=== PATIENT | male | born 1985 | race Caucasian/White ===

== ENCOUNTER 2019-10-21 03:35 | Emergency (ER) | payer OTHER ==
[2019-10-21 03:45] VITALS: BP 137/90
== END 2019-10-21 05:17 | disposition home or self-care (01) ==
LOC: M ED 03:35
DX: Z63.0 Problems in relationship with spouse or partner (principal); F41.9 Anxiety disorder, unspecified; F32.9 Major depressive disorder, single episode, unspecified; Z91.5 Personal history of self-harm

== ENCOUNTER → 2022-02-06 | Outpatient (CLI) | payer OTHER | LOC: M RAD 14:06 | PROVIDERS: ATTEND Internal Medicine Medical Oncology | DX: R59.0 Localized enlarged lymph nodes (principal) ==

== ENCOUNTER 2022-06-20 19:36 | Emergency (ER) | payer OTHER ==
[~2022-06-20] VITALS: Ht 180.3 cm; Wt 119.3 kg
[2022-06-20] MEDS ORDERED: PROA1AER2 INH (19:45)
[2022-06-20 21:04] LABS: VENOUS BASE EXCESS -0.5 (-2.0-2.0); VENOUS HCO3 24.4 MEQ/L (23.0-27.0); VENOUS O2 SATURATION 94.9 % (60.0-80.0); VENOUS PARTIAL PRESSURE CO2 41.4 mmHg (38.0-50.0); VENOUS PARTIAL PRESSURE O2 72.7 mmHg (30.0-50.0); VENOUS PH 7.389 UNITS (7.330-7.430); VENOUS TOTAL CO2 25.7 MEQ/L (24.0-28.0)
[2022-06-20] MEDS ORDERED: ALBUTEROL SULFATE 2.5MG/0.5ML INH NEB SOLN INH ONE (21:25)
[2022-06-20] MEDS ORDERED: IPRATROPIUM 0.5MG/ALBUTEROL 2.5MG INH SOL UD 3ML (DUONEB) NEB ONE (21:25)
[2022-06-20 21:33] LABS: CK-MB VALUE MASS < 1.0 NG/ML (<3.6)
[2022-06-20 21:34] LABS: ALBUMIN 3.9 G/DL (3.2-5.2); ALKALINE PHOSPHATASE 69 U/L (46-116); ALT/SGPT 132 U/L (7.0-40); AST/SGOT 39 U/L (<34); BILIRUBIN,DIRECT < 0.1 MG/DL (<0.4); BILIRUBIN,TOTAL 0.3 MG/DL (0.3-1.2); BLOOD UREA NITROGEN 14 MG/DL (9-23); CALCIUM LEVEL 8.8 MG/DL (8.5-10.1); CARBON DIOXIDE LEVEL 26 MMOL/L (20-31); CHLORIDE LEVEL 106 MMOL/L (98-107); CREATININE FOR GFR 0.72 MG/DL (0.70-1.30); GLOMERULAR FILTRATION RATE > 60.0 (>60); GLUCOSE, FASTING 115 MG/DL (60-100); POTASSIUM SERUM 4.3 MMOL/L (3.5-5.1); SODIUM LEVEL 138 MMOL/L (136-145); TOTAL PROTEIN 7.3 G/DL (5.7-8.2)
[2022-06-20 21:35] LABS: CPK CREATINE PHOSPHOKINASE 156 U/L (46-171); MB/CK RELATIVE INDEX 0.64 (< OR =4)
[2022-06-20 21:53] LABS: BASO # 0.1 10^3/uL (0.0-0.2); BASO % 0.6 % (0.0-1.0); EOS # 0.7 10^3/uL (0.0-0.5); EOS % 3.5 % (0.0-3.0); HEMATOCRIT 47.7 % (42.0-52.0); HEMOGLOBIN 16.5 g/dl (13.5-17.5); LYMPH # 4.2 10^3/uL (1.5-5.0); LYMPH % 19.4 % (24.0-44.0); MEAN CORPUSCULAR HEMOGLOBIN 30.6 pg (27.0-33.0); MEAN CORPUSCULAR HGB CONC 34.6 g/dl (32.0-36.5); MEAN CORPUSCULAR VOLUME 88.5 fl (80.0-96.0); MONO % 7.3 % (2.0-8.0); NEUTROPHILS # 14.7 10^3/uL (1.5-8.5); NEUTROPHILS % 68.3 % (36.0-66.0); PLATELET COUNT, AUTOMATED 326 10^3/uL (150-450); RED BLOOD COUNT 5.39 10^6/uL (4.30-6.10); WHITE BLOOD COUNT 21.4 10^3/uL (4.0-10.0)
[2022-06-20] MEDS ORDERED: ISOVUE-370 76% 100ML VIAL As Ordered ONE (22:16)
[2022-06-20 22:18] LABS: CK-MB VALUE MASS < 1.0 NG/ML (<3.6)
[2022-06-20 22:19] LABS: CPK CREATINE PHOSPHOKINASE 167 U/L (46-171); MB/CK RELATIVE INDEX 0.59 (< OR =4)
[2022-06-20 22:35] LABS: MONO # 1.6 10^3/uL (0.0-0.8)
[2022-06-20] MEDS ORDERED: LIDOCAINE VISCOUS 2% SOLN 15ML UDC PO ONE (23:30)
[2022-06-20 23:31] VITALS: O2SAT 93
[2022-06-21] MEDS ORDERED: OMEP40CA4 PO (00:25)
[2022-06-21] MEDS ORDERED: BENZ-18 PO (00:25)
[2022-06-21] MEDS ORDERED: PRED10TA2 PO (00:25)
[2022-06-21] MEDS ORDERED: CHLO1.4S7 MT (00:25)
[2022-06-21] MEDS ORDERED: BENZONATATE 100MG CAPSULE PO ONE (00:30)
[2022-06-21 00:43] VITALS: BP 151/80
== END 2022-06-21 00:43 | disposition home or self-care (01) ==
LOC: M ED 19:36
DX: J02.9 Acute pharyngitis, unspecified (principal); K21.9 Gastro-esophageal reflux disease without esophagitis; E78.5 Hyperlipidemia, unspecified; I10 Essential (primary) hypertension; J45.909 Unspecified asthma, uncomplicated; Z91.013 Allergy to seafood; Z79.52 Long term (current) use of systemic steroids; Z79.899 Other long term (current) drug therapy
CPT/HCPCS: 71045; 71275; 80048; 80076; 82550; 82553; 82803; 83605; 83880; 85025; 87040; 87486; 87581; 87633; 87798; 93005; 93041; 94640; 94760; 96374; 99285; J1100; Q9967

== ENCOUNTER 2022-06-24 03:23 | Inpatient (IN) | payer OTHER ==
[~2022-06-24] VITALS: Ht 180.3 cm; Wt 117.8 kg
[~2022-06-24 03:23] MED LIST: BENZ-18 PO; CHLO1.4S7 MT; OMEP40CA4 PO; PRED10TA2 PO; PROA1AER2 INH
[2022-06-24 05:04] LABS: VENOUS HCO3 23.3 MEQ/L (23.0-27.0); VENOUS O2 SATURATION 96.9 % (60.0-80.0); VENOUS PARTIAL PRESSURE CO2 41.9 mmHg (38.0-50.0); VENOUS PARTIAL PRESSURE O2 88.6 mmHg (30.0-50.0); VENOUS PH 7.363 UNITS (7.330-7.430); VENOUS STANDARD HCO3 22.8 MEQ/L; VENOUS TOTAL CO2 24.6 MEQ/L (24.0-28.0)
[2022-06-24 05:08] LABS: HEMATOCRIT 46.7 % (42.0-52.0); HEMOGLOBIN 15.5 g/dl (13.5-17.5); MEAN CORPUSCULAR HEMOGLOBIN 30.3 pg (27.0-33.0); MEAN CORPUSCULAR HGB CONC 33.2 g/dl (32.0-36.5); MEAN CORPUSCULAR VOLUME 91.2 fl (80.0-96.0); PLATELET COUNT, AUTOMATED 311 10^3/uL (150-450); RED BLOOD COUNT 5.12 10^6/uL (4.30-6.10); WHITE BLOOD COUNT 18.6 10^3/uL (4.0-10.0)
[2022-06-24 05:28] LABS: ATYPICAL LYMPH 9 % (0-5); EOSINOPHILS 10 % (0-3); LYMPHOCYTES 20 % (16-44); MONOCYTES 6 % (0-5); NEUTROPHILS 55 % (28-66); PLATELET ESTIMATE NORMAL (NORMAL)
[2022-06-24 05:33] LABS: CK-MB VALUE MASS 1.7 NG/ML (<3.6)
[2022-06-24 05:35] LABS: ALBUMIN 3.8 G/DL (3.2-5.2); ALKALINE PHOSPHATASE 59 U/L (46-116); ALT/SGPT 133 U/L (7.0-40); AST/SGOT 37 U/L (<34); BILIRUBIN,DIRECT 0.2 MG/DL (<0.4); BILIRUBIN,TOTAL 0.5 MG/DL (0.3-1.2); BLOOD UREA NITROGEN 18 MG/DL (9-23); CALCIUM LEVEL 8.5 MG/DL (8.5-10.1); CARBON DIOXIDE LEVEL 26 MMOL/L (20-31); CHLORIDE LEVEL 107 MMOL/L (98-107); CPK CREATINE PHOSPHOKINASE 454 U/L (46-171); CREATININE FOR GFR 0.74 MG/DL (0.70-1.30); GLOMERULAR FILTRATION RATE > 60.0 (>60); GLUCOSE, FASTING 89 MG/DL (60-100); MB/CK RELATIVE INDEX 0.37 (< OR =4); POTASSIUM SERUM 4.1 MMOL/L (3.5-5.1); SODIUM LEVEL 141 MMOL/L (136-145); TOTAL PROTEIN 7.2 G/DL (5.7-8.2)
[2022-06-24 05:56] LABS: CK-MB VALUE MASS 1.8 NG/ML (<3.6)
[2022-06-24 05:58] LABS: MB/CK RELATIVE INDEX 0.5 (< OR =4)
[2022-06-24 07:02] LABS: MONO SCRN NEGATIVE (NEGATIVE)
[2022-06-24] MEDS: IPRATROPIUM 0.5MG/ALBUTEROL 2.5MG INH SOL UD 3ML (DUONEB) NEB SCH (08:16)
[2022-06-24] MEDS ORDERED: NS 500 ML IV ONE (09:10)
[2022-06-24] MEDS ORDERED: ISOVUE-370 76% 100ML VIAL As Ordered ONE (09:12)
[2022-06-24] MEDS ORDERED: guaiFENesin/CODEINE SYRUP 5 ML UDC PO ONE (10:30)
[2022-06-24] MEDS: MAG SULF 1GM/100ML (MAG RUN) 1 GM in IV 1 EA IV SCH ×2 (10:43→11:00)
[2022-06-24] MEDS ORDERED: methylPREDNISolone 125MG 2ML VIAL IV ONE (10:50)
[2022-06-24] MEDS ORDERED: OMEP40CA4 PO (11:38)
[2022-06-24] MEDS ORDERED: THERPAK3 PO (11:38)
[2022-06-24] MEDS ORDERED: PRED20TA PO (11:38)
[2022-06-24] MEDS ORDERED: BENZ-18 PO (11:38)
[2022-06-24] MEDS ORDERED: HOME MED LIST COMPLETE! XX SCH (11:40)
[2022-06-24] MEDS: OMEPRAZOLE 20MG CAP PO SCH (13:31)
[2022-06-24] MEDS: ALBUTEROL SULFATE 2.5MG/0.5ML INH NEB SOLN NEB SCH ×4 (13:35→23:06)
[2022-06-24 15:11] VITALS: BP 124/92
[2022-06-24] MEDS: guaiFENesin/CODEINE SYRUP 5 ML UDC PO SCH (17:36)
[2022-06-24] MEDS ORDERED: ALBUTEROL SULFATE 2.5MG/0.5ML INH NEB SOLN NEB PRN (18:55)
[2022-06-24] MEDS: methylPREDNISolone 125MG 2ML VIAL IV SCH (21:41)
[2022-06-24] MEDS: SUCRALFATE SUSP 1GM/10ML UD PO SCH (21:42)
[2022-06-24] MEDS: AUGMENTIN 500MG TAB PO SCH (21:45)
[2022-06-24] MEDS: ENOXAPARIN 40MG/0.4ML SYRINGE (J1650 PER 10MG) SC SCH (21:46)
[2022-06-24 22:00] VITALS: BP 124/91
[2022-06-25] MEDS: ALBUTEROL SULFATE 2.5MG/0.5ML INH NEB SOLN NEB SCH ×3 (03:09→11:22)
[2022-06-25] MEDS: methylPREDNISolone 125MG 2ML VIAL IV SCH ×3 (03:25→20:34)
[2022-06-25 06:00] VITALS: BP 118/84
[2022-06-25 06:06] LABS: HEMATOCRIT 47.6 % (42.0-52.0); HEMOGLOBIN 15.9 g/dl (13.5-17.5); MEAN CORPUSCULAR HEMOGLOBIN 30.1 pg (27.0-33.0); MEAN CORPUSCULAR HGB CONC 33.4 g/dl (32.0-36.5); PLATELET COUNT, AUTOMATED 363 10^3/uL (150-450); RED BLOOD COUNT 5.29 10^6/uL (4.30-6.10); WHITE BLOOD COUNT 23.6 10^3/uL (4.0-10.0)
[2022-06-25] MEDS: AUGMENTIN 500MG TAB PO SCH ×3 (06:07→22:39)
[2022-06-25] MEDS: SUCRALFATE SUSP 1GM/10ML UD PO SCH ×3 (06:07→22:40)
[2022-06-25 06:37] LABS: ALBUMIN 3.8 G/DL (3.2-5.2); ALKALINE PHOSPHATASE 64 U/L (46-116); ALT/SGPT 123 U/L (7.0-40); AST/SGOT 25 U/L (<34); BILIRUBIN,TOTAL 0.8 MG/DL (0.3-1.2); BLOOD UREA NITROGEN 15 MG/DL (9-23); CARBON DIOXIDE LEVEL 26 MMOL/L (20-31); CHLORIDE LEVEL 103 MMOL/L (98-107); CREATININE FOR GFR 0.63 MG/DL (0.70-1.30); GLOMERULAR FILTRATION RATE > 60.0 (>60); GLUCOSE, FASTING 137 MG/DL (60-100); POTASSIUM SERUM 4.6 MMOL/L (3.5-5.1); SODIUM LEVEL 136 MMOL/L (136-145); TOTAL PROTEIN 7.4 G/DL (5.7-8.2)
[2022-06-25] MEDS: guaiFENesin/CODEINE SYRUP 5 ML UDC PO SCH ×2 (06:52)
[2022-06-25] MEDS: OMEPRAZOLE 20MG CAP PO SCH ×2 (09:02→20:35)
[2022-06-25] MEDS ORDERED: LEVALBUTEROL 1.25MG 0.5ML CONCENTRATE NEB NEB PRN (11:25)
[2022-06-25 14:00] VITALS: BP 140/83
[2022-06-25] MEDS: LEVALBUTEROL 1.25MG 0.5ML CONCENTRATE NEB NEB SCH ×2 (15:01→19:23)
[2022-06-25] MEDS: BUDESONIDE 0.5 MG/2 ML INHALATION SUSPENSION INH SCH (19:23)
[2022-06-25 19:55] VITALS: BP 142/83
[2022-06-25] MEDS: FLUTICASONE PROP 0.05% NASAL SPRAY 16 GM (FLONASE) NARES SCH (20:36)
[2022-06-25] MEDS: ENOXAPARIN 40MG/0.4ML SYRINGE (J1650 PER 10MG) SC SCH (22:39)
[2022-06-26] MEDS: AUGMENTIN 500MG TAB PO SCH (05:27)
[2022-06-26] MEDS: methylPREDNISolone 125MG 2ML VIAL IV SCH ×2 (05:27→16:53)
[2022-06-26] MEDS: SUCRALFATE SUSP 1GM/10ML UD PO SCH ×3 (05:27→22:27)
[2022-06-26 06:10] VITALS: BP 140/89
[2022-06-26 06:21] LABS: HEMATOCRIT 46.6 % (42.0-52.0); HEMOGLOBIN 15.8 g/dl (13.5-17.5); MEAN CORPUSCULAR HEMOGLOBIN 30.5 pg (27.0-33.0); MEAN CORPUSCULAR HGB CONC 33.9 g/dl (32.0-36.5); PLATELET COUNT, AUTOMATED 365 10^3/uL (150-450); RED BLOOD COUNT 5.18 10^6/uL (4.30-6.10); WHITE BLOOD COUNT 27.2 10^3/uL (4.0-10.0)
[2022-06-26 06:59] LABS: ALBUMIN 3.7 G/DL (3.2-5.2); ALKALINE PHOSPHATASE 62 U/L (46-116); ALT/SGPT 107 U/L (7.0-40); AST/SGOT 22 U/L (<34); BILIRUBIN,TOTAL 0.8 MG/DL (0.3-1.2); BLOOD UREA NITROGEN 18 MG/DL (9-23); CALCIUM LEVEL 9.2 MG/DL (8.5-10.1); CARBON DIOXIDE LEVEL 25 MMOL/L (20-31); CHLORIDE LEVEL 101 MMOL/L (98-107); CREATININE FOR GFR 0.66 MG/DL (0.70-1.30); GLOMERULAR FILTRATION RATE > 60.0 (>60); GLUCOSE, FASTING 137 MG/DL (60-100); POTASSIUM SERUM 4.4 MMOL/L (3.5-5.1); SODIUM LEVEL 135 MMOL/L (136-145); TOTAL PROTEIN 7.1 G/DL (5.7-8.2)
[2022-06-26] MEDS: LEVALBUTEROL 1.25MG 0.5ML CONCENTRATE NEB NEB SCH ×4 (07:21→20:21)
[2022-06-26] MEDS: BUDESONIDE 0.5 MG/2 ML INHALATION SUSPENSION INH SCH ×2 (07:21→20:21)
[2022-06-26] MEDS: OMEPRAZOLE 20MG CAP PO SCH ×2 (08:34→22:26)
[2022-06-26] MEDS ORDERED: PIPERACILLIN/TAZOBACTAM SOD 3.375 GM in D5W MINI-BAG PLUS 50 ML IV SCH (09:10)
[2022-06-26] MEDS ORDERED: VARIBAR PUDDING 40% w/v 230ML TUBE As Ordered ONE (10:29)
[2022-06-26] MEDS ORDERED: VARIBAR NECTAR 40% w/v 240ML SUSP BTL As Ordered ONE (10:30)
[2022-06-26] MEDS ORDERED: BARIUM SULFATE 700 MG TABLET (E-Z-DISK) As Ordered ONE (10:30)
[2022-06-26] MEDS ORDERED: E-Z-PAQUE 96% w/w SUSP 176GM BTL As Ordered ONE (10:30)
[2022-06-26] MEDS: PIPERACILLIN/TAZOBACTAM SOD 4.5 GM in D5W MINI-BAG PLUS 50 ML IV SCH ×3 (11:38→22:27)
[2022-06-26 14:00] VITALS: BP 127/69
[2022-06-26] MEDS ORDERED: ALBUTEROL SULFATE 2.5MG/0.5ML INH NEB SOLN NEB PRN (18:35)
[2022-06-26 20:00] VITALS: BP 129/73
[2022-06-26] MEDS: ENOXAPARIN 40MG/0.4ML SYRINGE (J1650 PER 10MG) SC SCH (22:27)
[2022-06-26] MEDS: FLUTICASONE PROP 0.05% NASAL SPRAY 16 GM (FLONASE) NARES SCH (22:27)
[2022-06-26] MEDS: guaiFENesin SYRUP 200MG 10ML UDC PO PRN (22:27)
[2022-06-27] MEDS: PIPERACILLIN/TAZOBACTAM SOD 4.5 GM in D5W MINI-BAG PLUS 50 ML IV SCH ×2 (05:00→09:12)
[2022-06-27] MEDS: SUCRALFATE SUSP 1GM/10ML UD PO SCH ×2 (05:00→14:40)
[2022-06-27] MEDS: methylPREDNISolone 125MG 2ML VIAL IV SCH (05:00)
[2022-06-27] MEDS: guaiFENesin SYRUP 200MG 10ML UDC PO PRN (05:00)
[2022-06-27 06:00] VITALS: BP 118/69
[2022-06-27 06:57] LABS: HEMATOCRIT 43.4 % (42.0-52.0); HEMOGLOBIN 14.2 g/dl (13.5-17.5); MEAN CORPUSCULAR HEMOGLOBIN 30.1 pg (27.0-33.0); MEAN CORPUSCULAR HGB CONC 32.7 g/dl (32.0-36.5); MEAN CORPUSCULAR VOLUME 92.1 fl (80.0-96.0); PLATELET COUNT, AUTOMATED 316 10^3/uL (150-450); RED BLOOD COUNT 4.71 10^6/uL (4.30-6.10)
[2022-06-27 07:26] LABS: ALBUMIN 3.4 G/DL (3.2-5.2); ALKALINE PHOSPHATASE 53 U/L (46-116); ALT/SGPT 120 U/L (7.0-40); AST/SGOT 29 U/L (<34); BILIRUBIN,TOTAL 0.8 MG/DL (0.3-1.2); BLOOD UREA NITROGEN 19 MG/DL (9-23); CALCIUM LEVEL 8.4 MG/DL (8.5-10.1); CARBON DIOXIDE LEVEL 27 MMOL/L (20-31); CHLORIDE LEVEL 105 MMOL/L (98-107); CREATININE FOR GFR 0.77 MG/DL (0.70-1.30); GLOMERULAR FILTRATION RATE > 60.0 (>60); GLUCOSE, FASTING 101 MG/DL (60-100); POTASSIUM SERUM 4.5 MMOL/L (3.5-5.1); SODIUM LEVEL 138 MMOL/L (136-145); TOTAL PROTEIN 6.4 G/DL (5.7-8.2)
[2022-06-27 07:50] VITALS: BP 132/83
[2022-06-27] MEDS: LEVALBUTEROL 1.25MG 0.5ML CONCENTRATE NEB NEB SCH ×2 (08:07→13:01)
[2022-06-27] MEDS: BUDESONIDE 0.5 MG/2 ML INHALATION SUSPENSION INH SCH (08:07)
[2022-06-27] MEDS: OMEPRAZOLE 20MG CAP PO SCH (09:12)
[2022-06-27] MEDS ORDERED: MUCI1TAB16 PO (12:36)
[2022-06-27] MEDS ORDERED: SYMB16INH INH (12:36)
[2022-06-27] MEDS ORDERED: SUCR1TA PO (12:36)
[2022-06-27] MEDS ORDERED: PRED20TA PO (12:36)
[2022-06-27] MEDS ORDERED: OMEP40CA4 PO (12:36)
[2022-06-27] MEDS ORDERED: LEVO1TAB39 PO (12:36)
[2022-06-27 12:50] VITALS: BP 136/77
[2022-06-27 14:00] VITALS: BP 131/76
[2022-06-27] MEDS ORDERED: SYMBICORT 160/4.5MCG INHALER 6GM INH SCH (20:00)
== END 2022-06-27 14:54 | disposition home or self-care (01) | DRG 816 ==
LOC: M ED 03:23 → M ED INP 12:08 → ENRESERV 14:10 → M MSPAV 14:56
PROVIDERS: ADMIT Internal Medicine; ATTEND Internal Medicine
DX: T59.811A Toxic effect of smoke, accidental (unintentional), initial encounter (principal); J18.9 Pneumonia, unspecified organism; J45.901 Unspecified asthma with (acute) exacerbation; I48.91 Unspecified atrial fibrillation; R13.10 Dysphagia, unspecified; J20.9 Acute bronchitis, unspecified; K21.9 Gastro-esophageal reflux disease without esophagitis; R74.01 Elevation of levels of liver transaminase levels; X19.XXXA Contact with other heat and hot substances, initial encounter; Z91.013 Allergy to seafood; Z79.899 Other long term (current) drug therapy; E66.9 Obesity, unspecified

== ENCOUNTER 2022-09-01 13:50 | Emergency (ER) | payer OTHER ==
[~2022-09-01] VITALS: Ht 180.3 cm; Wt 114.0 kg
[~2022-09-01 13:50] MED LIST changes: +LEVO1TAB39 PO; +MUCI1TAB16 PO; +PRED20TA PO; +SUCR1TA PO; +SYMB16INH INH; +THERPAK3 PO
[2022-09-01] MEDS ORDERED: methylPREDNISolone 125MG 2ML VIAL IV ONE (17:20)
[2022-09-01] MEDS ORDERED: NS 1,000 ML IV ONE (17:20)
[2022-09-01] MEDS ORDERED: PANTOPRAZOLE 40MG VIAL IV ONE (17:20)
[2022-09-01 18:03] LABS: BASO # 0.1 10^3/uL (0.0-0.2); BASO % 0.9 % (0.0-1.0); EOS # 0.6 10^3/uL (0.0-0.5); EOS % 4.6 % (0.0-3.0); HEMATOCRIT 47.6 % (42.0-52.0); HEMOGLOBIN 16.2 g/dl (13.5-17.5); LYMPH # 3.1 10^3/uL (1.5-5.0); LYMPH % 24.2 % (24.0-44.0); MEAN CORPUSCULAR HEMOGLOBIN 30.1 pg (27.0-33.0); MEAN CORPUSCULAR VOLUME 88.3 fl (80.0-96.0); MONO % 7.6 % (2.0-8.0); NEUTROPHILS # 7.9 10^3/uL (1.5-8.5); NEUTROPHILS % 62.2 % (36.0-66.0); PLATELET COUNT, AUTOMATED 352 10^3/uL (150-450); RED BLOOD COUNT 5.39 10^6/uL (4.30-6.10); WHITE BLOOD COUNT 12.7 10^3/uL (4.0-10.0)
[2022-09-01] MEDS: IPRATROPIUM 0.5MG/ALBUTEROL 2.5MG INH SOL UD 3ML (DUONEB) NEB PRN ×2 (18:12→19:33)
[2022-09-01 18:14] VITALS: BP 129/79
[2022-09-01 18:22] LABS: INR 0.93; PROTHROMBIN TIME 12.7 SECONDS (12.5-14.5)
[2022-09-01 18:25] LABS: D-DIMER QUANT 440.16 ng/ml (<500)
[2022-09-01 18:32] LABS: CK-MB VALUE MASS 2.2 NG/ML (<3.6); MB/CK RELATIVE INDEX 0.58 (< OR =4)
[2022-09-01] MEDS ORDERED: diphenhydrAMINE 50MG/ML VIAL IV STA (19:24)
[2022-09-01] MEDS ORDERED: PANT40TA29 PO (20:42)
[2022-09-01] MEDS ORDERED: AMOX500T PO (20:42)
[2022-09-01] MEDS ORDERED: ALBU2.5V10 NEB (20:42)
[2022-09-01] MEDS ORDERED: PRED20TA PO (20:42)
[2022-09-01] MEDS ORDERED: SYMB16INH INH (20:42)
== END 2022-09-01 20:55 | disposition home or self-care (01) ==
LOC: M ED 13:50
DX: J20.9 Acute bronchitis, unspecified (principal); J45.901 Unspecified asthma with (acute) exacerbation; K21.9 Gastro-esophageal reflux disease without esophagitis; I45.10 Unspecified right bundle-branch block; F41.9 Anxiety disorder, unspecified; Z86.79 Personal history of other diseases of the circulatory system; F10.10 Alcohol abuse, uncomplicated; Z91.013 Allergy to seafood; Z79.52 Long term (current) use of systemic steroids; Z79.899 Other long term (current) drug therapy
CPT/HCPCS: 71046; 80047; 82550; 82553; 83605; 83880; 85025; 85379; 85610; 87040; 87486; 87581; 87633; 87798; 93005; 94640; 96361; 96374; 96375; 99284; C9113; J1200; J2930

== ENCOUNTER 2022-11-25 11:20 | Day surgery (SDC) | payer OTHER ==
[~2022-11-25] VITALS: Ht 180.3 cm; Wt 114.5 kg
[~2022-11-25 11:20] MED LIST changes: +ALBU2.5V10 INH; +ALBU2.5V10 NEB; +ALBU8.5H INH; +AMOX500T PO; +FAMO1TAB11 PO; +LEVO1TAB40 PO; +NS 1,000 ML IV ONE; +PANT-23 PO; +PANT40TA29 PO
[2022-11-25] MEDS ORDERED: propofoL 500 MG/50 ML VIAL As Ordered ONE (11:47)
[2022-11-25] MEDS ORDERED: fentaNYL 100 MCG/2 ML INJECTION As Ordered ONE (11:47)
[2022-11-25] MEDS ORDERED: LIDOCAINE 2% 100MG/5ML SDV (FOR ANES.) As Ordered ONE (11:48)
[2022-11-25] MEDS ORDERED: PHENYLephrine 500MCG 5ML (100MCG/ML) SYRINGE As Ordered ONE (13:45)
[2022-11-25 13:55] VITALS: TEMP 97.9
[2022-11-25] MEDS ORDERED: NALOXONE INJ 0.4MG/1ML VIAL As Ordered ONE (14:48)
[2022-11-25 15:27] VITALS: BP 143/95; O2SAT 94
== END 2022-11-25 15:34 | disposition home or self-care (01) ==
LOC: M OPP 11:20
PROVIDERS: ATTEND Internal Medicine Gastroenterology
DX: D12.6 Benign neoplasm of colon, unspecified (principal); K64.4 Residual hemorrhoidal skin tags; K64.8 Other hemorrhoids; K63.89 Other specified diseases of intestine; K92.1 Melena; K21.00 Gastro-esophageal reflux disease with esophagitis, without bleeding; K29.70 Gastritis, unspecified, without bleeding; R13.10 Dysphagia, unspecified; Z79.1 Long term (current) use of non-steroidal anti-inflammatories (NSAID); Z79.51 Long term (current) use of inhaled steroids; Z79.52 Long term (current) use of systemic steroids; Z79.899 Other long term (current) drug therapy; Z91.013 Allergy to seafood
CPT/HCPCS: 43239; 45380; 88305; J2310; J2371; J3010

== ENCOUNTER → 2023-03-11 | Outpatient (CLI) | payer OTHER ==
[~2023-03-11] MED LIST changes: -NS 1,000 ML IV ONE
== END ==
LOC: M RAD 07:10
PROVIDERS: ATTEND Internal Medicine Pulmonary Disease
DX: R91.8 Other nonspecific abnormal finding of lung field (principal)

== ENCOUNTER → 2023-04-25 | Outpatient (CLI) | payer OTHER ==
[~2023-04-25] MED LIST changes: +AMIT25TA19 PO; +GABA-282 PO
[2023-04-25 15:20] LABS: HEMATOCRIT 46.1 % (42.0-52.0); MEAN CORPUSCULAR HEMOGLOBIN 30.4 pg (27.0-33.0); MEAN CORPUSCULAR HGB CONC 34.7 g/dl (32.0-36.5); MEAN CORPUSCULAR VOLUME 87.6 fl (80.0-96.0); PLATELET COUNT, AUTOMATED 332 10^3/uL (150-450); RED BLOOD COUNT 5.26 10^6/uL (4.30-6.10); WHITE BLOOD COUNT 11.9 10^3/uL (4.0-10.0)
== END ==
LOC: M EKG 14:54
PROVIDERS: ATTEND Anesthesiology
DX: Z01.818 Encounter for other preprocedural examination (principal); R94.31 Abnormal electrocardiogram [ECG] [EKG]

== ENCOUNTER 2023-05-03 09:33 | Day surgery (SDC) | payer OTHER ==
[~2023-05-03] VITALS: Ht 180.3 cm; Wt 117.5 kg
[2023-05-03] MEDS ORDERED: LR 1,000 ML IV SCH ×2 (10:40→13:05)
[2023-05-03] MEDS ORDERED: ALBUTEROL SULFATE 2.5MG/0.5ML INH NEB SOLN INH PRN ×2 (10:40→13:05)
[2023-05-03] MEDS ORDERED: ACETAMINOPHEN 1000MG 100ML IV BAG As Ordered ONE (10:49)
[2023-05-03] MEDS ORDERED: ROCURONIUM BROMIDE 50MG/5ML VIAL As Ordered ONE (10:49)
[2023-05-03] MEDS ORDERED: propofoL 200 MG/20 ML VIAL As Ordered ONE (10:49)
[2023-05-03] MEDS ORDERED: MIDAZOLAM INJ 2MG/2ML VIAL As Ordered ONE (10:49)
[2023-05-03] MEDS ORDERED: ONDANSETRON 4MG 2ML VIAL As Ordered ONE (10:49)
[2023-05-03] MEDS ORDERED: LIDOCAINE 2% 100MG/5ML SDV (FOR ANES.) As Ordered ONE (10:49)
[2023-05-03] MEDS ORDERED: SUGAMMADEX SODIUM 500 MG/5 ML VIAL (BRIDION) As Ordered ONE (10:49)
[2023-05-03] MEDS ORDERED: fentaNYL 100 MCG/2 ML INJECTION As Ordered ONE (10:52)
[2023-05-03] MEDS ORDERED: LIDOCAINE W/EPINEPHRINE 1% 20ML VIAL As Ordered ONE (11:50)
[2023-05-03] MEDS ORDERED: METOCLOPRAMIDE INJ 10MG/2ML VIAL IV PRN (13:05)
[2023-05-03] MEDS ORDERED: MEPERIDINE 25 MG/ML 1ML VIAL IV PRN (13:05)
[2023-05-03] MEDS ORDERED: oxyCODONE 5MG TAB PO PRN (13:05)
[2023-05-03] MEDS ORDERED: diphenhydrAMINE 50MG/ML VIAL IV PRN (13:05)
[2023-05-03] MEDS ORDERED: ONDANSETRON 4MG 2ML VIAL IV PRN (13:05)
[2023-05-03] MEDS ORDERED: fentaNYL 100 MCG/2 ML INJECTION IV PRN (13:05)
[2023-05-03] MEDS: HYDROMORPHONE HCL 0.5 MG/ 0.5 ML SYRINGE IV PRN ×2 (13:31→13:37)
[2023-05-03 15:32] VITALS: BP 126/91; TEMP 97.4; O2SAT 98
== END 2023-05-03 15:32 | disposition home or self-care (01) ==
LOC: M SDC 09:33
PROVIDERS: ATTEND Otolaryngology
DX: K13.79 Other lesions of oral mucosa (principal); R07.0 Pain in throat; R06.83 Snoring; M10.9 Gout, unspecified; K21.9 Gastro-esophageal reflux disease without esophagitis; R74.01 Elevation of levels of liver transaminase levels; Z91.013 Allergy to seafood; J45.998 Other asthma; Z79.51 Long term (current) use of inhaled steroids; Z79.899 Other long term (current) drug therapy; R13.10 Dysphagia, unspecified; I48.91 Unspecified atrial fibrillation; E66.9 Obesity, unspecified
CPT/HCPCS: 42140; 88305; J0131; J1100; J1170; J2250; J2405; J3010

== ENCOUNTER 2023-05-07 13:09 | Emergency (ER) | payer OTHER ==
[~2023-05-07] VITALS: Ht 180.3 cm; Wt 114.1 kg
[2023-05-07 15:20] VITALS: BP 132/84; TEMP 97.6; O2SAT 97
== END 2023-05-07 15:19 | disposition home or self-care (01) ==
LOC: M ED 13:09
DX: L76.82 Other postprocedural complications of skin and subcutaneous tissue (principal); R60.9 Edema, unspecified; J45.909 Unspecified asthma, uncomplicated; Z91.013 Allergy to seafood; Z90.89 Acquired absence of other organs; Z79.52 Long term (current) use of systemic steroids; Z79.891 Long term (current) use of opiate analgesic; Z79.899 Other long term (current) drug therapy

== ENCOUNTER 2023-09-04 21:29 | Emergency (ER) | payer OTHER ==
[~2023-09-04] VITALS: Ht 180.3 cm; Wt 116.6 kg
[2023-09-04] MEDS ORDERED: PRED20TA PO (23:55)
[2023-09-05] MEDS: predniSONE 20 MG TAB PO ONE (00:07)
[2023-09-05 00:13] VITALS: BP 132/79; TEMP 98.4; O2SAT 97
== END 2023-09-05 00:14 | disposition home or self-care (01) ==
LOC: M ED 21:29
DX: L25.9 Unspecified contact dermatitis, unspecified cause (principal); K21.9 Gastro-esophageal reflux disease without esophagitis; J45.909 Unspecified asthma, uncomplicated; Z86.79 Personal history of other diseases of the circulatory system; Z91.013 Allergy to seafood; Z79.52 Long term (current) use of systemic steroids; Z79.899 Other long term (current) drug therapy
CPT/HCPCS: 99283; J7512

== ENCOUNTER → 2023-12-01 | Outpatient (CLI) | payer OTHER | LOC: M SLEEP HO 11:49 | PROVIDERS: ATTEND Internal Medicine Pulmonary Disease | DX: R06.83 Snoring (principal) ==